=== PATIENT | male | born 1950 | race Caucasian/White ===

== ENCOUNTER 2023-12-18 16:52 | Emergency (ER) | payer MEDICARE, BC, SELFPAY ==
[2023-12-18 16:59] VITALS: BP 136/79
[2023-12-18 18:47] VITALS: BP 152/79
[2023-12-18 18:49] VITALS: BMI 29.8
--- NOTE | 2023-12-18 18:57 | ED.GENMED ---
History of Present Illness
General
Chief Complaint: Back Pain
Time Seen by Provider: 12/18/23 18:57
Travel History
Have you had any contact with someone who has COVID-19?: No
Do you have any symptoms of coronavirus? Fever > 100 degrees, chills, cough, shortness of breath, sore throat, loss of taste or smell, muscle aches, or headache?: No
History of Present Illness
History of Present Illness:
HPI: Patient presents with back/left flank pain. This has been ongoing but progressing over the last 2 to 3 weeks. He has a history of AAA that was managed emergently after it was found that it ruptured several years ago this was performed here by
Dr. Acosta.. This feels similar but not as bad as that episode. He has no lower extremity complaints
EXAM:
GENERAL: Well appearing in no distress
HEENT: Moist oral mucosa
CARDIOVASCULAR: No murmurs, normal heart rate, regular rhythm, No chest wall tenderness
PULMONARY: No respiratory distress, breath sounds are clear and equal
ABDOMEN: Soft with no peritoneal signs, no tenderness, no palpable pulsating mass
BACK: There is no midline T or L-spine tenderness, there is no CVA tenderness
NEUROLOGIC: Excellent strength all extremities, no coordination deficits
PSYCHIATRIC: Appropriate mental status, normal insight and judgement
EXTREMITIES: Nontender, no edema, moves all extremities equally
SKIN: No rash, no lesions
TIME OF INITIAL ENCOUNTER: 7 PM
NUMBER AND COMPLEXITY OF PROBLEMS ADDRESSED AT THE ENCOUNTER
� Chronic conditions affecting care: AAA repair 2018, chronic back pain/sciatica, COPD/smoker, high blood pressure, hyperlipidemia, hearing impaired
� Acute Exacerbation and/or Progression of Chronic Illness: This is an acute problem but has had similar episode in the past
� Differential Diagnosis includes: AAA repair, nonspecific back pain, ureteral stone/colic
AMOUNT AND/OR COMPLEXITY OF DATA TO BE REVIEWED AND ANALYZED
� I performed an independent evaluation of and my interpretation is:
EKG: Sinus 75, normal axis, nonspecific ST abnormality
CT: There is no evidence of thoracic or abdominal aortic dissection, AAA repair is noted and is stable, small intrarenal stone on the left is noted
X-rays:
Laboratory Studies: CBC normal, chemistries normal, urobilinogen noted however LFTs normal
Other:
� Review of other/old records: The patient was here in November in 2017 after an abnormal MRI of the L-spine that showed a large AAA that was managed operatively
� Clinical information was obtained by an independent historian: I spoke to the daughter at bedside
� Prescriptions/Medications Considered but not given:
� Further testing considered but not performed:
RISK OF COMPLICATIONS AND/OR MORBIDITY OR MORTALITY OF PATIENT MANAGEMENT
� Social determinants of health affecting care: Lives at home
� Discussion with other providers:
� Escalation of care including admission/observation vs risk of discharge considered: The patient currently appears comfortable. Will obtain CTA given his history of AAA however CTA imaging is unremarkable. The patient appears
fairly comfortable at discharge but reports rather significant pain�will give narcotic analgesia for a very short course. Suspect more of a musculoskeletal etiology of the pain. He states that he has not been going to physical therapy recently.
He states that he has not he has been unable to get back injections as he cannot go off the Brilinta.
Past History
Past History
ED Past Medical History: CVA, HTN, Hypercholesterolemia and Other (Left ICA aneurysm)
Social History
Tobacco: Smoker
Drug: None
Personal:
Living: with family
Employment: Employed
Phy Exam
Physical Exam
Physical Exam:
See HPI
Course
Orders/Labs/Results
Orders:
Orders
12/18/23 17:04
Electrocardiogram (*1) Urgent
Reason for Study: Other
Other Reason for Exam: back
12/18/23 17:05
EKG- Treatment ONCE
12/18/23 19:02
Ct Chest/Abd/Pel Angio W/Wo Iv Urgent
Reason For Exam: back pain / L pain / h/o AAA repair
12/18/23 19:08
CMP [Comprehensive Metabolic Panel] Urgent
Complete Blood Count/With Diff Urgent
12/18/23 20:12
Acetaminophen [Tylenol] 1,000 mg PO NOW STA
12/18/23 20:30
Caffeine Citrate [Caffeine Citrate Oral Solution] 65 mg PO NOW STA
12/18/23 20:59
Urinalysis Reflex To Culture Urgent
Date Specimen was Collected: 12/18/23
Time Specimen was Collected: 20:25
12/18/23 22:09
Oxycodone [Roxicodone] 5 mg PO NOW STA
Abnormal Lab Results
12/18/23 12/18/23
19:08 20:59
Absolute Monos (auto) 0.8 H 10^3/uL
(0.1-0.6)
Monocytes % 10.1 H %
(1.7-9.3)
Urine Urobilinogen 2+ A
(Neg - 1+)
12/18/23 19:08
12/18/23 19:08
Vital Signs
Initial and Last Documented VS:
Initial Vital Signs
Temp Pulse Resp BP Pulse Ox
98.1 F 88 18 136/79 97
12/18/23 16:59 12/18/23 16:59 12/18/23 16:59 12/18/23 16:59 12/18/23 16:59
Last Documented Vital Signs
Temp Pulse Resp BP Pulse Ox
98.1 F 88 18 146/92 99
12/18/23 16:59 12/18/23 16:59 12/18/23 16:59 12/18/23 21:00 12/18/23 21:30
*Critical Care Note
Total Time (30-74mins, 75-104mins- exclusive of procedures): Not Applicable
ED Attending Note
-
Portions of this chart may have been created with voice recognition software.� Occasional wrong word or��sound alike� substitutions may have occurred due to the inherent limitations of voice recognition software.
Discharge Plan
Departure
Patient Disposition: Home (Routine Discharge)
Date of Disposition: 12/18/23
Time of Disposition: 22:10
Patient with high blood pressure during this ER visit?: Yes
Discharge Problem:
Back pain
Instructions: Low Back Pain (DC)
Prescriptions:
New
oxycodone 5 mg tablet
5 - 10 mg PO Q6H PRN (Reason: Pain) Qty: 14 0RF
No Action
oxycodone-acetaminophen 1 EACH tablet
1 tab PO Q6HPRN PRN (Reason: pain)
Patient Comments:
take 1 tablet by mouth every 6 hours if needed
verapamil 120 mg Tablet
120 mg PO BID Qty: 1 0RF
Rx Instructions:
as your were doing at home
rosuvastatin 40 mg Tablet
40 mg PO QPM Qty: 30 0RF
Rx Instructions:
New medication
aspirin 81 mg Tablet,Chewable
81 mg PO DAILY Qty: 30 0RF
Rx Instructions:
New medication
clopidogrel [Plavix] 75 mg tablet
75 mg PO DAILY Qty: 90 0RF
Rx Instructions:
For 3 months and then stop
Referrals:
NONE,* [Active] -
Activity Restrictions/Additional Instructions:
CAT scan of the chest, abdomen, and pelvis showed no sign of aortic dissection. AAA repair appears stable. Incidentally you do have a stone in the left kidney which is very small but this would not be the cause of your pain. I did send a
prescription for oxycodone. If you take narcotic, I recommend taking some like MiraLAX to prevent constipation. Return here if worse.
Interventions
Interventions:
*Risk Screen - Suicide Last Done: 12/18/23 17:03
*General Assessment Last Done: 12/18/23 17:03
*Neglect/Abuse Screening Last Done: 12/18/23 17:03
ED- Fall Risk Assessment Last Done: 12/18/23 18:50
*ED COVID-19 Vaccine History Last Done: 12/18/23 18:50
ED-Musculoskeletal Assessment Last Done: 12/18/23 18:50
Discharge Date and Time
Print Language: HONDURAN
[2023-12-18 19:16] LABS: % Basophils 0.9 % (0-2); % Eosinophils 2.7 % (0-6); % Immature Granulocytes 0.1 % (0-0.5); % Monocytes 10.1 % (1.7-9.3); % Neutrophils 57.2 % (42.2-75.2); Absolute Basophils 0.1 10^3/uL (0-0.2); Absolute Eosinophils 0.2 10^3/uL (0-0.7); Absolute Lymphocytes 2.3 10^3/uL (1.2-3.4); Absolute Monocytes 0.8 10^3/uL (0.1-0.6); Absolute Neutrophils 4.5 10^3/uL (1.4-6.5); Hemoglobin 14.6 g/dL (13.0-18.0); Mean Corp Hgb Conc. 35.6 g/dL (33.0-37.0); Mean Corpuscular Hgb 30.8 pg (27.0-31.0); Mean Corpuscular Volume 86.5 fL (80.0-94.0); Nucleated Red Blood Cells % 0 % (-); Red Blood Cell Count 4.74 10^6/uL (4.70-6.10); Red Cell Dist. Width 13.1 % (11.5-14.5); White Blood Cell Count 7.9 10^3/uL (4.8-10.8)
[2023-12-18 19:27] LABS: Mean Platelet Volume 9.1 fL (7.4-10.4); Platelet Count 222 10^3/uL (130-400)
[2023-12-18 19:31] LABS: ALT (SGPT) 31 U/L (0-50); AST (SGOT) 25 U/L (17-59); Albumin 4.7 g/dl (3.5-5.0); Alkaline Phosphatase 64 U/L (38-126); Blood Urea Nitrogen 14 mg/dl (9-20); Calcium 9.4 mg/dl (8.4-10.2); Carbon Dioxide 25 mmol/L (22-30); Chloride 105 mmol/L (98-107); Estimated Creatinine Clearance 83 ml/min; Glucose 98 mg/dl (70-99); Potassium 4.6 mmol/L (3.5-5.1); Sodium 139 mmol/L (135-145); Total Bilirubin 0.5 mg/dl (0.2-1.3); Total Protein 7.1 g/dl (6.3-8.2); eGFR > 60.00
[2023-12-18 20:00] VITALS: BP 129/73
[2023-12-18 20:55] VITALS: BP 143/78
[2023-12-18] MEDS: TYLENOL 1000 MG PO (20:56)
[2023-12-18] MEDS: CAFFEINE CITRATE ORAL SOLUTION 65 MG PO (20:56)
[2023-12-18 21:00] VITALS: BP 146/92
[2023-12-18 21:06] LABS: Urine Albumin Negative (Neg - Trace); Urine Bilirubin Negative (Negative); Urine Character Clear (Clear); Urine Color Yellow; Urine Glucose Negative (Negative); Urine Ketone Negative (Negative); Urine Leukocyte Negative (Negative); Urine Nitrite Negative (Negative); Urine Occult Blood Negative (Negative); Urine Specific Gravity 1.005 (<1.030); Urine Urobilinogen 2+ (Neg - 1+)
[2023-12-18 22:00] VITALS: BP 147/82
[2023-12-18] MEDS: ROXICODONE 5 MG PO (22:18)
== END 2023-12-18 22:29 | disposition home or self-care (01) ==
LOC: EMR 16:52
PROVIDERS: Emergency Medicine; EMERGENCY PHYSICIAN Emergency Medicine; FAMILY PHYSICIAN Physician Assistant Medical
DX: M54.9 Dorsalgia, unspecified (principal); F17.200 Nicotine dependence, unspecified, uncomplicated; I10 Essential (primary) hypertension
CPT/HCPCS: 99285; 71275; 74174; 80053; 81003; 85025; 93005; Q9967

== ENCOUNTER → 2024-06-10 08:20 | Outpatient (REF) | payer MEDICARE, BC, SELFPAY | LOC: HWRAD 08:20 | PROVIDERS: ATTENDING PHYSICIAN Neurological Surgery; FAMILY PHYSICIAN Physician Assistant Medical | DX: I63.9 Cerebral infarction, unspecified (principal); I67.1 Cerebral aneurysm, nonruptured | CPT/HCPCS: 70496; 70498; Q9967 ==

== ENCOUNTER → 2024-12-23 08:17 | Outpatient (REF) | payer MEDICARE, BC, SELFPAY | LOC: HWRAD 08:17 | PROVIDERS: ATTENDING PHYSICIAN Internal Medicine Critical Care Medicine; FAMILY PHYSICIAN Physician Assistant Medical | DX: Z87.891 Personal history of nicotine dependence (principal) | CPT/HCPCS: 71271 ==

== ENCOUNTER → 2025-06-08 14:37 | Outpatient (REF) | payer MEDICARE, BC, SELFPAY | LOC: HWRAD 14:37 | PROVIDERS: ATTENDING PHYSICIAN Internal Medicine Critical Care Medicine; FAMILY PHYSICIAN Physician Assistant Medical | DX: R91.1 Solitary pulmonary nodule (principal); F17.210 Nicotine dependence, cigarettes, uncomplicated | CPT/HCPCS: 71250 ==